=== PATIENT | male | born 1930 | race Hispanic/Latino ===

== ENCOUNTER 2017-08-02 00:31 | Emergency (ER) | payer MEDICARE ==
[2017-08-02 00:47] VITALS: BMI 23.6
[2017-08-02 00:53] VITALS: BP 132/71; PULSE 59; RESP 16; TEMP 98.6; O2SAT 98
--- NOTE | 2017-08-02 01:28 | ED PDOC ---
HPI: Eye Injury/Pain Time Seen by Provider: 08/02/17 00:58 Chief Complaint (Nursing): Eye Problem Chief Complaint (Provider): eye irritation Additional History Per: Patient, Family Additional Complaint(s): 86 y/o male presents for evaluation of bilateral eye irritation x 1 hour. states she accidentally put Clotrimazole ear drops in to patients eyes (2 drops right eye, 1 drop left eye) instead of his Systane eye drops. states patient complained of immediate burning to both eyes, and then she realized, and washed eyes. Upon arrival to ED, patient states he is feeling better. Denies headache, dizziness, vision changes, drainage from eyes, pain to eyes. Past Medical History Reviewed: Historical Data, Nursing Documentation, Vital Signs Vital Signs: Last Vital Signs Temp 98.6 F 08/02/17 00:48 Pulse 59 L 08/02/17 00:48 Resp 16 08/02/17 00:48 BP 132/71 08/02/17 00:48 Pulse Ox 98 08/02/17 00:48 - Family History Family History: States: No Known Family Hx - Home Medications Home Medications: Ambulatory Orders Medication Instructions Recorded Carbidopa/Levodopa 25/100 mg 1 tab PO DAILY 08/02/17 [Sinemet] Lisinopril [Zestril] 20 mg PO DAILY 08/02/17 Silodosin [Rapaflo] 8 mg PO DAILY 08/02/17 - Allergies Allergies/Adverse Reactions: Allergies Allergy/AdvReac Type Severity Reaction Status Date / Time No Known Allergies Allergy Verified 08/02/17 00:47 Review of Systems ROS Statement: Except As Marked, All Systems Reviewed And Found Negative Eyes: Positive for: Redness Physical Exam - Reviewed Nursing Documentation Reviewed: Yes Vital Signs Reviewed: Yes - Physical Exam Appears: Positive for: Well, Non-toxic, No Acute Distress Head Exam: Positive for: ATRAUMATIC, NORMAL INSPECTION, NORMOCEPHALIC Skin: Positive for: Normal Color Eye Exam: Positive for: EOMI, PERRL, Conjunctival injection (bilateral). Negative for: Periorbital swelling, Periorbital tenderness Neurologic/Psych: Positive for: Alert, Oriented - ECG O2 Sat by Pulse Oximetry: 98 - Progress ED Course And Treament: Spoke with Karla from poison control; recommends flushing eye lateral to medial with warm water and ophtho follow up Patient does not wish to stay and have eyes flushed here. states she will flush eyes with warm water when they get home. Patient has an ophtho, advised to follow up tomorrow. Return precautions given. Disposition - Clinical Impression Clinical Impression: Irritation of both eyes - Patient ED Disposition Is Patient to be Admitted: No Counseled Patient/Family Regarding: Diagnosis, Need For Followup - Disposition Referrals: Zackery Franklin MD [Primary Care Provider] - Disposition: Routine/Home Disposition Time: 01:44 Condition: IMPROVED
== END 2017-08-02 01:45 | disposition home or self-care (01) ==
LOC: H.ER 00:31
DX: H57.8 Other specified disorders of eye and adnexa (principal)